=== PATIENT | female | born 1950 | race Caucasian/White ===

== ENCOUNTER 2016-09-25 10:33 | Day surgery (SDC) | payer MEDICARE, OTHER ==
[~2016-09-25 10:33] MED LIST: ACET500CAP PO; B12100T PO; BENICAR HCT1 TA1 PO; CALTRA600D PO; CONJUGATED ESTROGENS PO; FOLIC PO; MACROBID PO; MOBIC15 MG PO; PRILOSEC40 MG PO; PROMEGA PO; REQUIP1 PO; SINGULAIR1 PO; ULTRAM50 PO; VITE PO; [UNRECOGNIZED DRUG - OTHER] PO
== END 2016-09-25 23:59 | disposition home health service (06) ==
LOC: DMU 10:33
PROVIDERS: Internal Medicine Gastroenterology
PROC: 4A1B78Z Monitoring of Gastrointestinal Motility, Via Natural or Artificial Opening (ICD-10-PCS; principal; 2016-09-25 10:30)
DX: K21.9 Gastro-esophageal reflux disease without esophagitis (principal); I10 Essential (primary) hypertension
CPT/HCPCS: 91010; A9270; C1894

== ENCOUNTER 2016-10-08 06:01 | Observation (INO) | payer MEDICARE, OTHER ==
--- NOTE | ~2016-10-08 | OP ---
Record Of Operation [facility] [address] [place]. [address] NAME: MARE QUIÑONES : 52 STATUS : ADM IN PAT#: [id number] AGE: 66 ADM/REG DATE : 10/08/16 MR#: [id number] REPORT SERV DATE: 10/08/16 DICTATED BY: JOSHUA LUI DATE: 10/08/16 REPORT STATUS : Draft TRANSCRIBED BY: [email or web address] DATE: 10/08/16 DATE OF PROCEDURE: 10/08/2016 PREOPERATIVE DIAGNOSES: 1. Hiatal hernia. 2. 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 POSTOPERATIVE DIAGNOSES: 1. Hiatal hernia. 2. 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 NAME OF OPERATION: Laparoscopic hiatal hernia repair with Toupet fundoplication. ESTIMATED BLOOD LOSS: 10 mL. SPECIMENS: None. ANESTHESIA: General and local. DRAINS: None. COMPLICATIONS: None apparent. BRIEF HISTORY: A 66-year-old female, who has had persistent gastroesophageal reflux disease. The patient had two swallow studies, which demonstrated delayed gastric emptying, so after the risks and benefits of a repair of her hiatal hernia plus a partial fundoplication were described in detail, the patient has agreed to proceed with surgery. On the day of surgery, consent was signed and she was then brought to the operating room and placed in supine position. DESCRIPTION OF PROCEDURE: The patient's abdomen was prepped and draped in a standard fashion using Hibiclens and ChloraPrep. Attention was then brought to the left paraumbilical rectus sheath area. A transverse 10 mm incision was made with a scalpel. We then entered the abdomen through the left rectus sheath with Optiview technique with 10 mm trocar. This was done without incident. We then insufflated the abdomen to 15 mmHg. The patient tolerated well. Next, we inserted four additional trocars, one 10 mm trocar in the left epigastric area, one 5 mm trocar in the right epigastric area, and 5 mm trocars in the right and left lateral abdomen. We placed a liver retractor through our right lateral trocar. We then inspected the hiatus. There was a moderately sized hiatal hernia. The stomach reduced easily out of this defect. There were some omental adhesions to the left triangular ligament that were taken down with Harmonic scalpel. We then began our dissection along the right gautam through the gastrohepatic ligament. We carried this dissection anterior to the esophagus. Care was taken to preserve the tissues next to the esophagus. Once we had taken down the hernia sac around the anterior aspect of the hiatus, we were able to identify and thus preserve both vagus nerves. We then turned Record Of Operation [facility] [address] [place]. [address] NAME: MARE QUIÑONES : 52 STATUS : ADM IN PAT#: [id number] AGE: 66 ADM/REG DATE : 10/08/16 MR#: [id number] REPORT SERV DATE: 10/08/16 DICTATED BY: JOSHUA LUI DATE: 10/08/16 REPORT STATUS : Draft TRANSCRIBED BY: LISSETTE DATE: 10/08/16 our attention to the left side of the hiatus. We took down the short gastric vessels with the Harmonic scalpel. There was no bleeding. We then dissected along the peritoneal edge of the left gautam and superiorly towards the apex of the hiatus. We then dissected inferior to the left gautam from the right side and made a window around the GE junction. Then, we placed a Noreen drain around the GE junction and retracted inferiorly. Next, we began our dissection of the mediastinal adhesions, we continued this circumferentially. Care was taken to identify and preserve the vagus nerves again. We continued this circumferentially until adequate intra-abdominal esophageal length was obtained. We then repaired the hernia defect between the crura with two [id number] of 0 Ethibond suture using a suture assist. We did have an NG tube in the stomach for this portion of procedure. Next, we began our fundoplication. We grasped the stomach from the right side and walked posterior to the esophagus. We performed a shoeshine maneuver, which ensured that the stomach was not twisted. We then performed a Toupet wrap by placing two sutures from the fundus to the right side of the esophagus without injuring the vagus nerve. We then performed the same thing on the left side of the esophagus. We also performed one anchor suture between the wrap and the repaired crura. Once we had performed her wrap, we removed the NG tube with suction of a small amount of fluid in the hiatal area. We then began to remove our accessary trocars. There was no bleeding from the anterior abdominal wall. We then removed all trocars and desufflated the abdomen through the paraumbilical incision. We then closed the skin with interrupted 4-0 Monocryl sutures and covered the incisions with Band-Aids. The patient tolerated the procedure well. There were no complications. DICTATED BY: MD RAAD Lucio/LISSETTE Joshua Lui M.D. / [id number] CC: Wolfgang Sweet M.D.
[2016-10-08 07:10] LABS: BASOPHILS 0.3 %; BASOPHILS ABSOLUTE 0.03 10/3/uL (0.0-0.16); EOSINOPHILS 1.1 %; HEMOGLOBIN 11.1 g/dL (12.0-16.0); IMMATURE GRANULOCYTES 0.2 %; IMMATURE GRANULOCYTES ABSOLUTE 0.02 10/3/uL (0.0-0.11); LYMPHOCYTES 24.7 %; LYMPHOCYTES ABSOLUTE 2.34 10/3/uL (0.67-4.30); MEAN CORPUS HGB CONC 34.7 g/dL (32.0-36.0); MEAN CORPUSCULAR VOLUME 95.2 fL (80-100); MEAN PLATELET VOLUME 9.6 fL (9.2-13.0); MONOCYTES 8.9 %; MONOCYTES ABSOLUTE 0.84 10/3/uL (0.21-1.20); NEUTROPHILS 64.8 %; NEUTROPHILS ABSOLUTE 6.15 10/3/uL (2.02-8.40); PLATELET COUNT 375 10/3/uL (150-400); RBC DISTRIBUTION WIDTH 14.3 % (12.0-16.0); RED CELL COUNT 3.36 10/6/uL (4.0-5.6); WHITE BLOOD CELLS 9.5 10/3/uL (4.5-10.5)
[2016-10-08 07:16] LABS: MANUAL DIFF NO %
[2016-10-08 07:24] LABS: A/G RATIO 0.9 (0.7-1.9); ALBUMIN 3.6 G/DL (3.5-5.0); ALKALINE PHOSPHATASE 78 U/L (45-117); BUN (BLOOD UREA NITROGEN) 29 MG/DL (6-23); CALCIUM, SERUM 8.8 MG/DL (8.5-10.4); CHLORIDE, SERUM 107 MMOL/L (96-112); CO2 (CARBON DIOXIDE) 23 MMOL/L (24-34); CREATININE 1.19 MG/DL (0.55-1.02); GFR AFRICAN AMERICAN 55 ML/MIN (>=60); GFR NON AFRICAN AMERICAN 48 ML/MIN (>=60); GLOBULIN 4.1 G/DL (2.5-4.1); GLUCOSE, SERUM 84 MG/DL (60-99); POTASSIUM, SERUM 3.7 MMOL/L (3.5-5.3); SGOT(AST) 11 U/L (5-40); SGPT(ALT) 18 U/L (5-65); SODIUM, SERUM 141 MMOL/L (135-148); TOTAL BILIRUBIN 0.5 MG/DL (0-1.2); TOTAL PROTEIN 7.7 G/DL (6.0-8.5)
[2016-10-08 10:24] LABS: BUN (BLOOD UREA NITROGEN) 27 MG/DL (6-23); CALCIUM, SERUM 8.3 MG/DL (8.5-10.4); CHLORIDE, SERUM 106 MMOL/L (96-112); CO2 (CARBON DIOXIDE) 22 MMOL/L (24-34); CREATININE 1.16 MG/DL (0.55-1.02); GFR AFRICAN AMERICAN 57 ML/MIN (>=60); GFR NON AFRICAN AMERICAN 49 ML/MIN (>=60); GLUCOSE, SERUM 174 MG/DL (60-99); POTASSIUM, SERUM 3.3 MMOL/L (3.5-5.3); SODIUM, SERUM 141 MMOL/L (135-148)
[2016-10-09] MEDS ORDERED: PCET PO (08:34)
== END 2016-10-09 13:38 | disposition home or self-care (01) ==
LOC: SDC/OF 06:01 → PACU 09:53 → 5SO 12:36
PROVIDERS: Specialist
PROC: 0BQR4ZZ (ICD-10-PCS; 2016-10-08)
PROC: 0BQS4ZZ (ICD-10-PCS; principal; 2016-10-08 07:45)
DX: K44.9 Diaphragmatic hernia without obstruction or gangrene (principal); K21.9 Gastro-esophageal reflux disease without esophagitis; K22.70 Barrett's esophagus without dysplasia; M19.90 Unspecified osteoarthritis, unspecified site; D64.9 Anemia, unspecified; I10 Essential (primary) hypertension; G25.81 Restless legs syndrome; Z79.52 Long term (current) use of systemic steroids; Z79.899 Other long term (current) drug therapy; Z98.890 Other specified postprocedural states
CPT/HCPCS: 80048; 80053; 85025; 96374; 96375; 96376; A9270-GY; G0378; J0330; J0690; J1170; J2250; J2270; J2405; J2710; J3010